=== PATIENT | male | born 1995 | race African-American/Black ===

== ENCOUNTER 2019-02-08 13:50 | Emergency (ER) | payer OTHER, SELFPAY ==
[2019-02-08 13:56] VITALS: BP 113/70; PULSE 66; RESP 16; TEMP 36.4; O2SAT 97; BMI 22.7
--- NOTE | 2019-02-08 15:32 | ED.VISSUMM ---
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 He is right-hand dominant. Tetanus is up-to-date. Physical Examination: Vital signs unremarkable. Left upper extremity examination was a 1 cm flap laceration the left thumb. He has full range of motion of the digit with normal sensation distally. Test Results: [] Emergency Department Course and Treatment: Digital block was performed with 3 cc of 1% lidocaine. Wound was irrigated and skin is closed with 2 simple interrupted sutures of 5-0 nylon. Patient is to have sutures removed in 5 to 7 days. He will follow-up with [facility]. Treatment Plan: [] Disposition: Discharge Impression: Left thumb laceration status post suture This note was generated with [employer] dictation software. It may contain incorrect words, spelling, and punctuation that were not noted in review of the chart prior to signing ED Disposition - Plan for ED Patient: Disposition: Home or Assisted Living Instructions: LACERATION, Hand Referrals: [facility] [GROUP OF PHYSICIANS] - 7 Days for suture removal
[2019-02-08 15:43] VITALS: PULSE 84; RESP 18; O2SAT 99
== END 2019-02-08 15:47 | disposition home or self-care (01) ==
PROVIDERS: Emergency Provider Emergency Medicine; Family Provider Internal Medicine; PCP Internal Medicine
DX: S61.012A Laceration without foreign body of left thumb without damage to nail, initial encounter (principal); W26.0XXA Contact with knife, initial encounter; Y93.9 Activity, unspecified; Y92.9 Unspecified place or not applicable
CPT/HCPCS: 12001; 99283